=== PATIENT | male | born 1940 | race Caucasian/White ===

== ENCOUNTER 2016-10-19 08:02 | Day surgery (SDC) | payer MEDICARE, BC ==
--- NOTE | 2016-10-13 13:25 | HP ---
ADMITTING HISTORY AND PHYSICAL: DATE OF ADMISSION: 10/19/16 ADMITTING DIAGNOSIS: Left renal calculi. PLANNED PROCEDURE: Shockwave lithotripsy, left renal calculi. SURGEON: Dr. Wu. HISTORY OF PRESENT ILLNESS: Latoya Llamas is a 76-year-old gentleman with a history of recurrent renal calculi. He had been treated in 2015 for large calculus in the left ureteropelvic junction and left kidney and had done very well. Recent ultrasound, however, revealed 9 mm calculus in the mid pole of the left kidney and a 1.3 cm calculus in the lower pole. He is now being brought in for lithotripsy. PAST MEDICAL HISTORY: Significant for: 1. History of sinus node dysfunction. 2. History of renal calculi. MEDICATIONS: On admission: 1. Metoprolol 25 mg q.a.m. and 50 mg q.p.m. 2. Multivitamins daily. 3. Omeprazole p.r.n. ALLERGIES AND INTOLERANCES: PENICILLIN, SULFA, and INTRAVENOUSLY ADMINISTERED IODINATED CONTRAST. PHYSICAL EXAMINATION GENERAL: Reveals a pleasant elderly gentleman. He has a pacemaker and is followed by Dr. Baird for this. VITAL SIGNS: Blood pressure of 128/80; pulse 77 per minute, regular; oxygen saturation 98% on room air. CARDIOVASCULAR EXAM: S1, S2. No murmurs. LUNGS: Clear bilaterally. ABDOMEN: Soft without masses. He has a pacemaker in the left anterior chest wall area. IMPRESSION AND PLAN: A 76-year-old gentleman with left renal calculi. PLANNED PROCEDURE: Shockwave lithotripsy of left renal calculi. CC: Dr. Mainor Sena; Dr. Nick Baird; Dr. Wu* [id number]/[facility] #: [id number] [facility]
[~2016-10-19 08:02] MED LIST: Buffered Lidocaine 0.9% SYRIN* 5 ML/SYR SYRINGE INTRADERM ONE; Dexamethasone IV* 4 MG/ML 1 ML (4 MG) IV SLOW PU ONE; Famotidine IV* 10 MG/ML 2 ML (20 mg) IV ONE; Midazolam* 1 MG/ML 2 ML VIAL (2 MG) ONE; fentaNYL* 50 MCG/ML 2 ML VIAL (100 MCG VIAL) ONE
--- NOTE | 2016-10-19 08:40 | RAD ---
HISTORY: Shock wave lithotripsy COMPARISONS: October 05, 2016 VIEWS: Frontal views of the abdomen. FINDINGS: BOWEL: There is a nonspecific bowel gas pattern, with nondilated small bowel gas noted. CALCULI: There are 2 calculi overlying the left renal parenchymal shadow measuring up to 0.6 cm in size. These are stable from the previous examination. BONES AND SOFT TISSUES: Degenerative changes are noted OTHER FINDINGS: The lung bases are clear. There is no subphrenic gas. IMPRESSION: LEFT NEPHROLITHIASIS
[2016-10-19] MEDS ORDERED: Propofol* 10 MG/ML 20 ML BTL IV PUSH ONE (09:53)
[2016-10-19] MEDS ORDERED: Lidocaine 2% PF * 5 ML VIAL ONE (09:53)
[2016-10-19] MEDS ORDERED: diPHENhydraMINE IV* 50 MG/ML 1 ml VIAL (BENADRYL) ONE (10:18)
[2016-10-19 11:46] VITALS: BP 149/86
--- NOTE | 2016-10-20 05:28 | OP ---
CC: Dr. Mainor Sena * DATE OF OPERATION: 10/19/16 - [facility] DATE OF : 44 SURGEON: Raheel Wu MD ANESTHESIOLOGIST: Dr. Taylor. ANESTHESIA: General. PRE-OP DIAGNOSIS: Left renal calculi. POST-OP DIAGNOSIS: Left renal calculi. OPERATIVE PROCEDURE: Shock wave lithotripsy of left renal calculi. INDICATIONS: Latoya Llamas Junior is a 76-year-old gentleman with a history of left renal calculi. He was recently evaluated and noted to have new left renal calculi and is now being brought in for treatment of the same. COMPLICATIONS: None. POSTOPERATIVE CONDITION: Stable. DESCRIPTION OF PROCEDURE: After induction of general anesthesia, the patient was placed on the lithotripsy table in supine position. There were 2 calculi in the lower pole of the left kidney, which were localized using fluoroscopy. Shock wave lithotripsy was commenced at a rate of 60 shocks per minute. After the initial 300 shocks, there was a pause in lithotripsy for several minutes in an effort to minimize any potential trauma to the kidney. Lithotripsy was then resumed and periodic imaging revealed good localization. A total of 2400 shocks were administered. The patient tolerated the procedure satisfactorily and was transferred back to the recovery area in stable condition. [id number]/[facility] #: [id number] MTDD
== END 2016-10-19 12:18 | disposition home or self-care (01) ==
LOC: OR 08:02 → IMG 08:02
PROVIDERS: ATTEND Urology
DX: N20.0 Calculus of kidney (principal); I10 Essential (primary) hypertension; Z95.0 Presence of cardiac pacemaker; I47.1 Supraventricular tachycardia; Z87.891 Personal history of nicotine dependence
CPT/HCPCS: 74000; J1200; J2250; J2704; J3010

== ENCOUNTER 2017-12-08 13:34 | Day surgery (SDC) | payer MEDICARE, BC ==
[~2017-12-08 13:34] MED LIST changes: -Midazolam* 1 MG/ML 2 ML VIAL (2 MG) ONE; +Ondansetron TAB* 4 MG PO ONE; +Sodium Citrate/Citric Acid* 15 ML UDC PO ONE; -fentaNYL* 50 MCG/ML 2 ML VIAL (100 MCG VIAL) ONE
[2017-12-08] MEDS ORDERED: Midazolam* 1 MG/ML 2 ML VIAL (2 MG) ONE ×2 (13:41→13:54)
[2017-12-08] MEDS ORDERED: fentaNYL* 50 MCG/ML 2 ML VIAL (100 MCG VIAL) ONE ×2 (13:41→14:05)
[2017-12-08] MEDS ORDERED: Etomidate* 2 MG/ML 10 ML VIAL ONE (13:42)
[2017-12-08] MEDS ORDERED: Succinylcholine* 20 MG/ML 10 ML VIAL ONE (13:57)
[2017-12-08] MEDS ORDERED: Sodium Citrate/Citric Acid* 15 ML UDC ONE (13:58)
[2017-12-08] MEDS ORDERED: Famotidine IV* 10 MG/ML 2 ML (20 mg) ONE (13:58)
[2017-12-08] MEDS ORDERED: PROCHLORPERAZINE INJ 5 MG/ML 2 ML VIAL IV PRN (14:27)
[2017-12-08] MEDS ORDERED: HYDROmorphone INJ* 0.5 MG/0.5 ML SYRINGE IV PRN (14:27)
[2017-12-08] MEDS ORDERED: fentaNYL* 50 MCG/ML 2 ML VIAL (100 MCG VIAL) IV PRN (14:27)
[2017-12-08] MEDS ORDERED: Ondansetron INJ* 2 MG/ML VIAL IV PRN (14:27)
[2017-12-08] MEDS ORDERED: Naloxone* 0.4 MG/ML 1 ML VIAL IV PRN (14:27)
[2017-12-08] MEDS ORDERED: oxyCODONE/Acetamin 5/325 MG* TAB PO PRN (14:27)
[2017-12-08] MEDS ORDERED: Lidocaine 2% JELLY* 6 ML JELLY TOPICAL ONE (15:11)
[2017-12-08] MEDS ORDERED: Lidocaine 1%* 5 ML VIAL ONE (15:11)
[2017-12-08] MEDS ORDERED: Sugammadex * 200 MG/2 ML VIAL IV PUSH ONE (15:52)
[2017-12-08 17:59] VITALS: BP 118/75
--- NOTE | 2017-12-09 07:45 | PRO ---
BRONCHOSCOPY REPORT: DATE OF PROCEDURE: 12/08/17 [facility] PROCEDURE PERFORMED BY: Katrina Guerra MD ANESTHESIA: General anesthesia. ANESTHESIOLOGIST: Dr. Marcela Rivas. PREPROCEDURAL DIAGNOSES: Left lung pneumonia, lung collapse. PROCEDURE PERFORMED: Bronchoscopy with airway inspection and bronchoalveolar lavage. DESCRIPTION OF PROCEDURE: Informed consent was obtained from the patient prior to the procedure after all the risks and benefits were thoroughly explained. The patient recently had a CT scan, which showed near complete collapse of left upper lobe with dense consolidation, air bronchograms, having fevers in spite of antibiotics, and thick secretions. Bronchoscopy was performed for the airway inspection for bronchoalveolar lavage. The patient was intubated with size 8.5 endotracheal tube. Olympus bronchoscope was inserted through ET tube for airway inspection. ET tube positioning was confirmed to be 2.5 cm above the level of [place]. Thick white secretions were seen, stuck to the airways. All airways were patent without any obvious endobronchial lesions. Right side airways looked patent without much secretions. Thin white secretions were suctioned out. The left side showed thick white sticky secretions. Secretions were suctioned out. No endobronchial lesions were noted. The patient did not have any evidence of mucus plugging. Bronchoalveolar lavage was obtained from left upper lobe. Bronchoscope was then withdrawn. The patient was extubated and seen in the recovery in optimal condition. Fluid sample was sent for microbiological and cytological examination. [id number] #: [id number] MTDD
== END 2017-12-08 18:03 | disposition home or self-care (01) ==
LOC: OR 13:34
PROVIDERS: ATTEND Internal Medicine
DX: J18.1 Lobar pneumonia, unspecified organism (principal); J98.19 Other pulmonary collapse; J90 Pleural effusion, not elsewhere classified; M19.90 Unspecified osteoarthritis, unspecified site; G47.33 Obstructive sleep apnea (adult) (pediatric); I25.2 Old myocardial infarction; Z87.891 Personal history of nicotine dependence; I25.10 Atherosclerotic heart disease of native coronary artery without angina pectoris; E78.5 Hyperlipidemia, unspecified; Z95.810 Presence of automatic (implantable) cardiac defibrillator; J44.9 Chronic obstructive pulmonary disease, unspecified; I95.9 Hypotension, unspecified
CPT/HCPCS: 87070; 87102; 87107; 87205; 87206; 88112; A9270-GY; J0330; J2250; J3010

== ENCOUNTER 2023-09-01 09:09 | Inpatient (IN) ==
[2023-09-07] MEDS: Senna TAB 8.6 mg TAB PO PRN (21:23)
[2023-09-07] MEDS: guaiFENesin 100 mg/5 ml LIQ unit dose cup PO PRN (21:23)
[2023-09-07] MEDS: levETIRAcetam LIQ 500 MG/5 ML UDC PO SCH (21:23)
[2023-09-07] MEDS: Latanoprost 0.005% 2.5 ml BTL LEFT EYE SCH (21:24)
[2023-09-07] MEDS: Mometasone/Formoter 200/5 MDI INH SCH (21:24)
[2023-09-07] MEDS: Butalb/Acetamin/Caff TAB 325-50-40MG PO PRN (21:35)
[2023-09-08 07:12] LABS: ABS Eosinophils 0.1 10^3/uL (0.0-0.5); ABS Lymphocytes 1.3 10^3/uL (1.0-4.8); ABS Monocytes 1.5 10^3/uL (0.0-1.1); ABS Neutrophils 10.2 10^3/uL (1.5-7.6); Eosinophil % 0.5 %; Hematocrit 40.4 % (38-53); Hemoglobin 13.3 g/dL (13.2-16.3); Lymphocyte % 9.6 %; Mean Corpuscular Hemoglobin 29.8 pg (27-33); Mean Corpuscular Hgb Conc 32.8 g/dL (31-36); Mean Corpuscular Volume 90.9 fL (80-97); Mean Platelet Volume 7.3 fL (7.5-11.2); Platelet Count 293 10^3/uL (150-450); Red Blood Count 4.44 10^6/uL (4.06-5.63); Red Cell Distribution Width 14.3 % (12-17)
[2023-09-08 07:41] LABS: Albumin 3.2 g/dL (3.2-5.2); Albumin/Globulin Ratio 1.1 (1-3); Calcium 8.4 mg/dL (8.6-10.3); Creatinine, Serum 0.97 mg/dL (0.67-1.17); Globulin 2.9 g/dL (2-4); Potassium 4.5 mmol/L (3.5-5.0); Total Bilirubin 0.4 mg/dL (0.2-1.0); Total Protein 6.1 g/dL (6.4-8.9); eGFR CKD-EPI 78.4 (>60)
[2023-09-08] MEDS: Magnesium Hydroxide LIQ 30 ML UDC PO PRN (11:02)
[2023-09-08] MEDS: TRANEXAMIC ACID 650 MG PO SCH (11:02)
[2023-09-08] MEDS: Bacitracin OINTMENT TUBE TOPICAL SCH (21:31)
[2023-09-09] MEDS: Senna TAB 8.6 mg TAB PO SCH (21:22)
[2023-09-10] MEDS: Polyethylene Glycol 3350 17 GM PACKET PO SCH (08:19)
[2023-09-10] MEDS: BLINK TEARS BOTH EYES SCH (08:28)
[2023-09-13 13:19] LABS: ABS Basophils 0.1 10^3/uL (0.0-0.1); ABS Eosinophils 0.1 10^3/uL (0.0-0.5); ABS Lymphocytes 1.3 10^3/uL (1.0-4.8); ABS Monocytes 1.2 10^3/uL (0.0-1.1); ABS Neutrophils 11.4 10^3/uL (1.5-7.6); Eosinophil % 0.4 %; Hematocrit 38.1 % (38-53); Hemoglobin 12.7 g/dL (13.2-16.3); Mean Corpuscular Hemoglobin 30.3 pg (27-33); Mean Corpuscular Hgb Conc 33.3 g/dL (31-36); Mean Corpuscular Volume 90.9 fL (80-97); Mean Platelet Volume 7.1 fL (7.5-11.2); Platelet Count 328 10^3/uL (150-450); Red Cell Distribution Width 14.2 % (12-17)
[2023-09-13 13:35] LABS: Albumin 3.2 g/dL (3.2-5.2); Albumin/Globulin Ratio 1.1 (1-3); Calcium 8.7 mg/dL (8.6-10.3); Creatinine, Serum 0.99 mg/dL (0.67-1.17); Globulin 2.9 g/dL (2-4); Potassium 4.5 mmol/L (3.5-5.0); Total Bilirubin 0.2 mg/dL (0.2-1.0); Total Protein 6.1 g/dL (6.4-8.9); eGFR CKD-EPI 76.5 (>60)
[2023-09-13 21:13] LABS: ABS Lymphocytes 0.6 10^3/uL (1.0-4.8); ABS Monocytes 0.3 10^3/uL (0.0-1.1); ABS Neutrophils 13.8 10^3/uL (1.5-7.6); ABS Nucleated RBC 0.01 10^3/ul; Eosinophil % 0.2 %; Hematocrit 38.5 % (38-53); Hemoglobin 12.8 g/dL (13.2-16.3); Lymphocyte % 3.8 %; Mean Corpuscular Hemoglobin 30.2 pg (27-33); Mean Corpuscular Hgb Conc 33.3 g/dL (31-36); Mean Corpuscular Volume 90.6 fL (80-97); Mean Platelet Volume 7.1 fL (7.5-11.2); Platelet Count 291 10^3/uL (150-450); Red Blood Count 4.24 10^6/uL (4.06-5.63); Red Cell Distribution Width 14.4 % (12-17); White Blood Count 14.7 10^3/uL (3.6-10.2)
[2023-09-13 21:50] LABS: Albumin 3.3 g/dL (3.2-5.2); Albumin/Globulin Ratio 1.2 (1-3); Calcium 8.5 mg/dL (8.6-10.3); Creatinine, Serum 1.04 mg/dL (0.67-1.17); Globulin 2.7 g/dL (2-4); Potassium 4.6 mmol/L (3.5-5.0); Total Bilirubin 0.3 mg/dL (0.2-1.0); eGFR CKD-EPI 72.1 (>60)
[2023-09-13 22:04] LABS: Urine Appearance Clear; Urine Bilirubin Negative (Negative); Urine Blood Negative (Negative); Urine Color Light-Yellow; Urine Glucose Negative (Negative); Urine Ketones Negative (Negative); Urine Nitrite 2+ (Negative); Urine Protein Negative (Negative); Urine Specific Gravity 1.018 (1.002-1.030); Urine Urobilinogen Negative (Negative)
[2023-09-13 22:39] LABS: Urine Bacteria 3+ /HPF (Absent); Urine Red Blood Cell 2+(6-10/hpf) /HPF (0-Trace); Urine Squamous Epithelial Cell Present /HPF (Absent); Urine White Blood Cell 2+(11-20/hpf) /HPF (0-Trace)
[2023-09-13] MEDS: DOXYcycline 100 MG in NS 0.9% 250 ml 250 ML IVPB SCH (23:47)
[2023-09-14] MEDS: Lactated Ringers 1000 ml BAG 1,000 ML IV ONE ×2 (00:11→01:01)
[2023-09-14 07:06] LABS: Hemoglobin 11.7 g/dL (13.2-16.3); Mean Corpuscular Hemoglobin 29.5 pg (27-33); Mean Corpuscular Hgb Conc 32.5 g/dL (31-36); Mean Corpuscular Volume 90.6 fL (80-97); Mean Platelet Volume 6.8 fL (7.5-11.2); Platelet Count 246 10^3/uL (150-450); Red Blood Count 3.97 10^6/uL (4.06-5.63); Red Cell Distribution Width 14.2 % (12-17); White Blood Count 18.6 10^3/uL (3.6-10.2)
[2023-09-14 08:45] LABS: ABS Basophils 0.1 10^3/uL (0.0-0.1); ABS Lymphocytes 1.8 10^3/uL (1.0-4.8); ABS Monocytes 1.8 10^3/uL (0.0-1.1); ABS Neutrophils 14.9 10^3/uL (1.5-7.6); Eosinophil % 0.1 %; Lymphocyte % 9.5 %
[2023-09-14] MEDS: TRANEXAMIC ACID 650 MG PO SCH (10:50)
[2023-09-15 07:00] LABS: Hematocrit 34.3 % (38-53); Hemoglobin 11.6 g/dL (13.2-16.3); Mean Corpuscular Hemoglobin 30.4 pg (27-33); Mean Corpuscular Hgb Conc 33.6 g/dL (31-36); Mean Corpuscular Volume 90.4 fL (80-97); Mean Platelet Volume 7.4 fL (7.5-11.2); Platelet Count 212 10^3/uL (150-450); Red Cell Distribution Width 14.2 % (12-17); White Blood Count 10.8 10^3/uL (3.6-10.2)
[2023-09-15 07:16] LABS: Albumin 2.8 g/dL (3.2-5.2); Calcium 7.7 mg/dL (8.6-10.3); Creatinine, Serum 0.94 mg/dL (0.67-1.17); Globulin 2.7 g/dL (2-4); Potassium 4.7 mmol/L (3.5-5.0); Total Bilirubin 0.2 mg/dL (0.2-1.0); Total Protein 5.5 g/dL (6.4-8.9); eGFR CKD-EPI 81.4 (>60)
[2023-09-15 07:41] LABS: ABS Lymphocytes 1.2 10^3/uL (1.0-4.8); ABS Monocytes 1.6 10^3/uL (0.0-1.1); ABS Neutrophils 7.9 10^3/uL (1.5-7.6); Eosinophil % 0.4 %; Lymphocyte % 11.2 %
[2023-09-17 06:29] LABS: ABS Lymphocytes 1.5 10^3/uL (1.0-4.8); ABS Monocytes 1.3 10^3/uL (0.0-1.1); ABS Neutrophils 6.5 10^3/uL (1.5-7.6); Eosinophil % 0.5 %; Hematocrit 35.2 % (38-53); Hemoglobin 11.9 g/dL (13.2-16.3); Lymphocyte % 15.7 %; Mean Corpuscular Hemoglobin 30.4 pg (27-33); Mean Corpuscular Hgb Conc 33.9 g/dL (31-36); Mean Corpuscular Volume 89.8 fL (80-97); Mean Platelet Volume 7.2 fL (7.5-11.2); Platelet Count 213 10^3/uL (150-450); Red Blood Count 3.92 10^6/uL (4.06-5.63); Red Cell Distribution Width 14.1 % (12-17); White Blood Count 9.3 10^3/uL (3.6-10.2)
[2023-09-22 04:37] VITALS: BP 98/62
[2023-09-22 10:01] LABS: ABS Lymphocytes 1.5 10^3/uL (1.0-4.8); ABS Monocytes 1.1 10^3/uL (0.0-1.1); ABS Neutrophils 8.4 10^3/uL (1.5-7.6); ABS Nucleated RBC 0.01 10^3/ul; Eosinophil % 0.2 %; Hematocrit 40.5 % (38-53); Hemoglobin 13.6 g/dL (13.2-16.3); Lymphocyte % 13.3 %; Mean Corpuscular Hemoglobin 30.5 pg (27-33); Mean Corpuscular Hgb Conc 33.7 g/dL (31-36); Mean Corpuscular Volume 90.5 fL (80-97); Mean Platelet Volume 7.5 fL (7.5-11.2); Nucleated Red Blood Cells % 0.1 %/100WBC (0.0-0.8); Platelet Count 253 10^3/uL (150-450); Red Blood Count 4.47 10^6/uL (4.06-5.63); Red Cell Distribution Width 14.2 % (12-17)
[2023-09-22 10:32] LABS: Albumin 3.3 g/dL (3.2-5.2); Calcium 8.8 mg/dL (8.6-10.3); Globulin 3.3 g/dL (2-4); Potassium 4.3 mmol/L (3.5-5.0); Total Bilirubin 0.4 mg/dL (0.2-1.0); Total Protein 6.6 g/dL (6.4-8.9); eGFR CKD-EPI 75.6 (>60)
== END 2023-09-22 16:40 | disposition short-term general hospital (02) | DRG 44 ==
LOC: PMRU 09-07 11:10
PROVIDERS: ADMIT Physical Medicine & Rehabilitation; ATTEND Physical Medicine & Rehabilitation

== ENCOUNTER 2023-10-04 08:53 | Inpatient (IN) ==
[2023-10-05] MEDS ORDERED: Magnesium Hydroxide LIQ 30 ML UDC PO PRN (12:00)
[2023-10-05] MEDS: Calcium Carb (TUMS) 500 mg CHEW TAB PO PRN (12:38)
[2023-10-05] MEDS: Meropenem 2 GM in NS 0.9% 100 ml BAG 100 ML IVPB SCH (16:08)
[2023-10-05] MEDS: Mometasone/Formoter 200/5 MDI INH SCH (22:02)
[2023-10-05] MEDS: Potassium & Sodium Phos 250 mg = 1 PACKET PO SCH (22:04)
[2023-10-05] MEDS: levETIRAcetam LIQ 500 MG/5 ML UDC PO SCH (22:04)
[2023-10-05] MEDS: Latanoprost 0.005% 2.5 ml BTL LEFT EYE SCH (22:04)
[2023-10-05] MEDS: Butalb/Acetamin/Caff TAB 325-50-40MG PO PRN (22:21)
[2023-10-06 06:43] LABS: ABS Eosinophils 0.2 10^3/uL (0.0-0.5); ABS Lymphocytes 1.1 10^3/uL (1.0-4.8); ABS Monocytes 1.2 10^3/uL (0.0-1.1); ABS Neutrophils 6.4 10^3/uL (1.5-7.6); ABS Nucleated RBC 0.01 10^3/ul; Eosinophil % 2.1 %; Hematocrit 37.5 % (38-53); Hemoglobin 12.3 g/dL (13.2-16.3); Lymphocyte % 12.5 %; Mean Corpuscular Hemoglobin 29.7 pg (27-33); Mean Corpuscular Hgb Conc 32.9 g/dL (31-36); Mean Corpuscular Volume 90.4 fL (80-97); Nucleated Red Blood Cells % 0.1 %/100WBC (0.0-0.8); Platelet Count 125 10^3/uL (150-450); Red Blood Count 4.15 10^6/uL (4.06-5.63); Red Cell Distribution Width 14.3 % (12-17); White Blood Count 8.9 10^3/uL (3.6-10.2)
[2023-10-06 08:34] LABS: Albumin 2.8 g/dL (3.2-5.2); Albumin/Globulin Ratio 1.2 (1-3); C Reactive Protein 7.87 mg/L (<8.01); Calcium 7.9 mg/dL (8.6-10.3); Creatinine, Serum 0.87 mg/dL (0.67-1.17); Globulin 2.4 g/dL (2-4); Potassium 3.9 mmol/L (3.5-5.0); Total Bilirubin 0.4 mg/dL (0.2-1.0); Total Protein 5.2 g/dL (6.4-8.9); eGFR CKD-EPI 86.7 (>60)
[2023-10-06] MEDS: TRANEXAMIC ACID 650 MG PO SCH (16:54)
[2023-10-07] MEDS: TRANEXAMIC ACID 650 MG PO SCH (09:53)
[2023-10-12] MEDS: Nystatin TOP POWDER 15 GM BTL TOPICAL SCH (22:06)
[2023-10-13 06:06] LABS: ABS Basophils 0.1 10^3/uL (0.0-0.1); ABS Eosinophils 0.3 10^3/uL (0.0-0.5); ABS Monocytes 0.9 10^3/uL (0.0-1.1); ABS Neutrophils 4.5 10^3/uL (1.5-7.6); ABS Nucleated RBC 0.01 10^3/ul; Eosinophil % 4.8 %; Hematocrit 36.6 % (38-53); Hemoglobin 12.4 g/dL (13.2-16.3); Lymphocyte % 14.8 %; Mean Corpuscular Hemoglobin 30.4 pg (27-33); Mean Corpuscular Hgb Conc 33.8 g/dL (31-36); Mean Corpuscular Volume 89.9 fL (80-97); Mean Platelet Volume 8.5 fL (7.5-11.2); Nucleated Red Blood Cells % 0.1 %/100WBC (0.0-0.8); Platelet Count 120 10^3/uL (150-450); Red Blood Count 4.07 10^6/uL (4.06-5.63); Red Cell Distribution Width 14.8 % (12-17); White Blood Count 6.8 10^3/uL (3.6-10.2)
[2023-10-13 06:15] LABS: Albumin 2.9 g/dL (3.2-5.2); Albumin/Globulin Ratio 1.2 (1-3); C Reactive Protein 3.92 mg/L (<8.01); Calcium 8.2 mg/dL (8.6-10.3); Creatinine, Serum 0.93 mg/dL (0.67-1.17); Globulin 2.5 g/dL (2-4); Potassium 4.5 mmol/L (3.5-5.0); Total Bilirubin 0.4 mg/dL (0.2-1.0); Total Protein 5.4 g/dL (6.4-8.9); eGFR CKD-EPI 82.5 (>60)
[2023-10-13] MEDS: Meropenem 2 GM in NS 0.9% 100 ml BAG 100 ML IVPB SCH (17:33)
[2023-10-15] MEDS: Senna TAB 8.6 mg TAB PO PRN (20:59)
[2023-10-16] MEDS ORDERED: Polyethylene Glycol 3350 17 GM PACKET PO PRN (08:33)
[2023-10-20 05:12] LABS: ABS Eosinophils 0.2 10^3/uL (0.0-0.5); ABS Lymphocytes 1.2 10^3/uL (1.0-4.8); ABS Monocytes 0.8 10^3/uL (0.0-1.1); ABS Neutrophils 3.7 10^3/uL (1.5-7.6); Eosinophil % 3.9 %; Hematocrit 35.9 % (38-53); Hemoglobin 12.2 g/dL (13.2-16.3); Mean Corpuscular Hemoglobin 30.7 pg (27-33); Mean Corpuscular Hgb Conc 33.9 g/dL (31-36); Mean Corpuscular Volume 90.8 fL (80-97); Mean Platelet Volume 8.3 fL (7.5-11.2); Nucleated Red Blood Cells % 0.1 %/100WBC (0.0-0.8); Platelet Count 109 10^3/uL (150-450); Red Blood Count 3.96 10^6/uL (4.06-5.63); Red Cell Distribution Width 15.4 % (12-17); White Blood Count 5.9 10^3/uL (3.6-10.2)
[2023-10-20 05:56] LABS: Albumin 2.9 g/dL (3.2-5.2); Albumin/Globulin Ratio 1.2 (1-3); C Reactive Protein 1.82 mg/L (<8.01); Calcium 7.8 mg/dL (8.6-10.3); Creatinine, Serum 0.98 mg/dL (0.67-1.17); Globulin 2.4 g/dL (2-4); Potassium 4.6 mmol/L (3.5-5.0); Total Bilirubin 0.4 mg/dL (0.2-1.0); Total Protein 5.3 g/dL (6.4-8.9); eGFR CKD-EPI 77.5 (>60)
[2023-10-25 06:45] LABS: ABS Eosinophils 0.2 10^3/uL (0.0-0.5); ABS Lymphocytes 1.4 10^3/uL (1.0-4.8); ABS Monocytes 0.8 10^3/uL (0.0-1.1); ABS Neutrophils 3.6 10^3/uL (1.5-7.6); Eosinophil % 3.3 %; Hematocrit 39.1 % (38-53); Hemoglobin 13.1 g/dL (13.2-16.3); Lymphocyte % 22.9 %; Mean Corpuscular Hemoglobin 30.7 pg (27-33); Mean Corpuscular Hgb Conc 33.5 g/dL (31-36); Mean Corpuscular Volume 91.6 fL (80-97); Mean Platelet Volume 8.3 fL (7.5-11.2); Nucleated Red Blood Cells % 0.1 %/100WBC (0.0-0.8); Platelet Count 112 10^3/uL (150-450); Red Blood Count 4.27 10^6/uL (4.06-5.63); Red Cell Distribution Width 15.6 % (12-17); White Blood Count 5.9 10^3/uL (3.6-10.2)
[2023-10-25 07:28] LABS: Albumin 3.2 g/dL (3.2-5.2); Albumin/Globulin Ratio 1.3 (1-3); C Reactive Protein 1.1 mg/L (<8.01); Creatinine, Serum 0.94 mg/dL (0.67-1.17); Globulin 2.5 g/dL (2-4); Potassium 4.4 mmol/L (3.5-5.0); Total Bilirubin 0.5 mg/dL (0.2-1.0); Total Protein 5.7 g/dL (6.4-8.9); eGFR CKD-EPI 81.4 (>60)
[2023-10-26] MEDS: Meropenem 2 GM in NS 0.9% 100 ml BAG 100 ML IVPB SCH (05:21)
[2023-10-28 05:38] VITALS: BP 132/74
== END 2023-10-28 12:15 | disposition swing bed (61) | DRG 55 ==
LOC: PMRU 10-05 11:29
PROVIDERS: ADMIT Physical Medicine & Rehabilitation; ATTEND Physical Medicine & Rehabilitation